=== PATIENT | female | born 1995 | race Two or more races ===

== ENCOUNTER 2023-12-20 23:09 | Emergency (ER) | payer MEDICAID ==
[~2023-12-20] VITALS: Ht 167.6 cm; Wt 48.0 kg
[2023-12-20 23:36] VITALS: O2SAT 100
[2023-12-20] MEDS: METOCLOPRAMIDE HCL 10MG/2ML VIAL IV ONE (23:45)
[2023-12-21] MEDS: METOCLOPRAMIDE HCL 10MG/2ML VIAL IV ONE (00:45)
[2023-12-21 01:07] LABS: BASOPHILS % 0.4 % (0.0-2.0); HEMATOCRIT. 35.4 % (36.0-48.0); HEMOGLOBIN. 11.8 g/dL (12.0-16.0); MEAN CORPUSCULAR HGB CONC 33.4 g/dL (31.0-37.0); MEAN CORPUSCULAR VOLUME 92.7 fL (81.0-99.0); MEAN PLATELET VOLUME 8.2 fl (7.4-10.4); MONOCYTES % 1.6 % (2.0-8.0); PLATELET 320 x1000/uL (130-400); RED BLOOD CELL COUNT 3.82 mill/uL (4.2-5.4); RED CELL DISTRIBUTION WIDTH 13.1 % (11.6-14.6); WHITE BLOOD COUNT 11.6 x1000/uL (4.5-11.0)
[2023-12-21 01:18] LABS: ALANINE AMINOTRANSFERASE 21 IU/L (10-49); ALBUMIN 4.7 g/dL (3.2-4.8); ASPARTATE AMINOTRANSFERASE 21 IU/L (<34); B-HCG QUANTITATIVE 50980 mIU/mL (<3); BILIRUBIN TOTAL 1.3 mg/dL (0.1-1.0); CALCIUM 9.4 mg/dL (8.7-10.4); CARBON DIOXIDE 19 mEq/L (21-32); CHLORIDE 106 mEq/L (98-107); CREATININE 0.6 mg/dL (0.6-1.0); GLUCOSE 141 mg/dL (70-105); POTASSIUM 3.1 mEq/L (3.5-5.1); PROTEIN TOTAL 7.6 g/dL (6.0-8.3); SODIUM 136 mEq/L (136-145); UREA NITROGEN BLOOD 9 mg/dL (9-23)
[2023-12-21] MEDS: SODIUM CHLORIDE 0.9% 1,000 ML IV ONE ×2 (01:45→07:45)
[2023-12-21] MEDS: PROMETHAZINE HCL 25MG TABLET PO STA (02:32)
[2023-12-21] MEDS ORDERED: DOXY25TA61 MT (02:41)
[2023-12-21] MEDS ORDERED: METO-293 MT (02:41)
[2023-12-21] MEDS ORDERED: PYRI25TA4 MT (02:41)
[2023-12-21] MEDS: DIPHENHYDRAMINE 50MG/ML VIAL IV NR (03:19)
[2023-12-21] MEDS: ONDANSETRON HCL 4MG/2ML INJ IV ONE (03:20)
[2023-12-21 06:40] LABS: CLARITY URINE CLEAR (CLEAR); COLOR URINE YELLOW (YELLOW); GLUCOSE URINE NEGATIVE (NEGATIVE); KETONES URINE 4+ (NEGATIVE); LEUKOCYTE ESTERASE URINE NEGATIVE (NEGATIVE); NITRITE URINE NEGATIVE (NEGATIVE); OCCULT BLOOD URINE NEGATIVE (NEGATIVE); PH URINE 7.5 (4.5-8.0); PROTEIN URINE 1+ (NEGATIVE); SPECIFIC GRAVITY URINE 1.032 (1.005-1.030)
[2023-12-21 07:09] LABS: SQUAMOUS EPITHELIAL CELL URINE 2+ /lpf (RARE/1+)
[2023-12-21 07:10] LABS: BACTERIA URINE 1+; RBC URINE 0-2 /hpf (0-2); WBC URINE 0-2 /hpf (0-2)
[2023-12-21] MEDS: KCL 10MEQ/50ML PREMIX 50 ML IV ONE (07:45)
[2023-12-21 09:15] VITALS: BP 110/52; PULSE 74; RESP 19; TEMP 99
== END 2023-12-21 09:16 | disposition home or self-care (01) ==
LOC: ER 23:09
DX: O21.0 Mild hyperemesis gravidarum (principal); Z3A.01 Less than 8 weeks gestation of pregnancy
CPT/HCPCS: 99285; 76801; 36415 ×2; 76817; 96361; 96374; 96375; 80053; 81003; 82010; 84702; 83690; 85025; 86850; 86900; 86901; J7030 ×2; Q0169; J1200; J2765; J2405; J3480; 36556